=== PATIENT | female | born 1990 | race Two or more races ===

== ENCOUNTER → 2017-08-09 | Outpatient (CLI) | payer OTHER ==
[~2017-08-09] MED LIST: IBUP800 PO; OXYACE5T PO
[2017-08-09 20:06] LABS: Free Thyroxine 0.77 ng/dL (0.70-1.60); Thyroid Stimulating Hormone 6.42 uIU/mL (0.360-4.800)
== END | disposition home or self-care (01) ==
LOC: LAB 17:23
PROVIDERS: Nurse Practitioner Primary Care
DX: E05.80 Other thyrotoxicosis without thyrotoxic crisis or storm (principal)
CPT/HCPCS: 84439; 84443

== ENCOUNTER → 2019-03-22 | Outpatient (CLI) | payer SELFPAY | LOC: LAB SHORT 10:30 → LAB 10:30 | PROVIDERS: Registered Nurse Community Health | DX: Z12.4 Encounter for screening for malignant neoplasm of cervix (principal) | CPT/HCPCS: G0123 ==

== ENCOUNTER 2024-05-29 23:13 | Observation (INO) | payer BC ==
[~2024-05-29] VITALS: Ht 160 cm; Wt 106.5 kg
[2024-05-29] MEDS ORDERED: Ondansetron HCl 2 MG / ML 2ML Vial IV PRN (23:30)
[2024-05-29] MEDS ORDERED: LEVOTHYROXINE112 M18 PO (23:31)
[2024-05-29] MEDS ORDERED: OMEP20ER PO (23:32)
[2024-05-29 23:50] LABS: BASOPHILS ABSOLUTE AUTO 0.05 K/mm3 (0.00-0.23); BASOPHILS PERCENT AUTO 1 % (0-2); EOSINOPHILS ABSOLUTE AUTO 0.06 K/mm3 (0.00-0.68); EOSINOPHILS PERCENT AUTO 1 % (0-6); Hematocrit 37.6 % (33.0-51.0); Hemoglobin 12.7 g/dL (11.5-16.0); IMMATURE GRAN ABSOLUTE AUTO 0.01 K/mm3 (0.00-0.10); IMMATURE GRAN PERCENT AUTO 0 % (0-1); LYMPHOCYTES PERCENT AUTO 34 % (21-46); MONOCYTES ABSOLUTE AUTO 0.22 K/mm3 (0.16-1.47); MONOCYTES PERCENT AUTO 4 % (4-13); Mean Corpuscular HGB 28.9 pg (26.0-34.0); Mean Corpuscular HGB Conc 33.8 g/dL (31.5-36.5); Mean Corpuscular Volume 86 fL (80-100); Mean Platelet Volume 9.2 fL (9.1-12.4); NEUTROPHILS ABSOLUTE AUTO 3.43 K/mm3 (1.96-9.15); NEUTROPHILS PERCENT AUTO 60 % (41-73); Platelet Count 248 K/mm3 (150-400); RDW Coefficient Variation 12.5 % (11.7-14.2); RDW Standard Deviation 39.3 fL (35.1-46.3); Red Blood Cell Count 4.39 M/mm3 (3.80-5.20); White Blood Cell Count 5.67 K/mm3 (4.00-11.30)
[2024-05-30 00:07] LABS: Albumin, Blood 3.7 g/dL (3.4-5.0); Bilirubin, Total 1.3 mg/dL (0.1-1.0); Bun/Creatinine Ratio 29.3 (12.0-20.0); Calcium, Blood 8.8 mg/dL (8.5-10.1); Creatinine, Blood 0.65 mg/dL (0.40-1.00); Globulin, Blood 3.8 g/dL (2.2-4.0); Potassium, Blood 3.4 mmol/L (3.5-5.5); Total Protein, Blood 7.5 g/dL (6.4-8.2)
[2024-05-30 00:44] LABS: Source, Urine Clean Catch
[2024-05-30 01:05] LABS: Bilirubin, Urine Neg (Neg); Blood, Urine Neg (Neg); Glucose Qualitative, Urine Neg (Neg); Ketones, Urine Neg (Neg); Leukocyte Esterase, Urine Neg (Neg); Nitrite, Urine Neg (Neg); Protein, Urine Neg (Neg); Specific Gravity, Urine 1.015 (1.003-1.022); Urobilinogen, Urine 1+ (Normal)
[2024-05-30 01:11] LABS: Appearance, Urine Clear (Clear); Color, Urine Yellow (P-Yellow)
[2024-05-30] MEDS ORDERED: Ketorolac Tromethamine 30mg Vial IV ONE (01:55)
[2024-05-30] MEDS ORDERED: Potassium Chl 20MEQ/Water100ML 100 ML IV ONE (03:10)
[2024-05-30] MEDS ORDERED: FentaNYL Citrate 50 MCG/ML 2 ML Injection IV PRN (03:10)
[2024-05-30] MEDS ORDERED: CefTRIAXone Sodium 2,000 MG in NS 100 ML IV SCH (03:10)
[2024-05-30] MEDS ORDERED: Ondansetron HCl 2 MG / ML 2ML Vial IV PRN (03:10)
[2024-05-30] MEDS ORDERED: Lactated Ringer's 1,000 ML IV SCH (03:15)
[2024-05-30] MEDS ORDERED: Potassium Chl 10MEQ/Water100ML 100 ML IV SCH (03:25)
--- NOTE | 2024-05-30 04:09 | NUR ---
REPORT TAKEN FROM PHILIPP LONG FROM ED @ [phone].
[2024-05-30 04:40] VITALS: BP 121/76
--- NOTE | 2024-05-30 06:16 | NUR ---
SHIFT SUMMARY NOC PT A/O X 4. PLEASANT AND COOPERATIVE WITH CARE. VSS. ADMIT FOR CHOLYCYSTITIS. NPO FOR PROCEDURE TODAY. PT HAS LR INFUSING @ 200 ML/HR INSTEAD OF 500 ML/HR DUE TO PT NOT TOLERATING IV KCL WITH C/O OF BURNING. KCL IS INFUSING @ 25 ML HR ON LAST BAG SO PT CAN TOLERATE INFUSION. PT HAS NOT HAD C/O OF SIGNIFICANT PAIN SINCE ADMIT TO FLOOR. PT CURRENTLY RESTING WITH BED IN LOWEST POSITION, AND CALL LIGHT WITHIN REACH.
[2024-05-30 08:27] VITALS: BP 102/72
[2024-05-30 09:31] LABS: Albumin, Blood 3.4 g/dL (3.4-5.0); Bilirubin, Total 1.2 mg/dL (0.1-1.0); Bun/Creatinine Ratio 19.8 (12.0-20.0); Calcium, Blood 8.8 mg/dL (8.5-10.1); Creatinine, Blood 0.61 mg/dL (0.40-1.00); Globulin, Blood 3.5 g/dL (2.2-4.0); Potassium, Blood 3.8 mmol/L (3.5-5.5); Total Protein, Blood 6.9 g/dL (6.4-8.2)
[2024-05-30] MEDS ORDERED: FLU VACC TS2024-25(6MOS UP)/PF 45 MCG/0.5 ML SYRINGE IM PRN (10:55)
[2024-05-30] MEDS ORDERED: D5W-1/2NS KCl 20mEq 1,000 ML IV SCH (10:55)
[2024-05-30] MEDS ORDERED: NS 250 ML IV PRN (11:35)
[2024-05-30] MEDS ORDERED: Ampicillin Sod/Sulbactam Sod 3 GM in NS 100 ML IV SCH (12:00)
--- NOTE | 2024-05-30 12:33 | NUR ---
PT TO MRI.
[2024-05-30 14:56] VITALS: BP 103/61
--- NOTE | 2024-05-30 19:00 | NUR ---
SHIFT SUMMARY PT A/OX4. PT WAS INITIALLY NPO SINCE MID NIGHT BUT CHANGED TO CLEAR LIQUIDS AFTER SURGERY WAS CHANGED TO TOMORROW. PT FRED CLEAR LIQUIDS WELL. PT HAS NOT HAD ANY PAIN DURING THIS SHIFT. PT RECEIVING SCHEDULED IV ANTIBIOTICS. PT IN GOOD SPIRITS. CARE PLAN ONGOING.
[2024-05-30 19:33] VITALS: BP 109/75
[2024-05-30] MEDS ORDERED: Omeprazole 20 MG CapCR PO ONE (20:50)
[2024-05-30] MEDS ORDERED: Docusate Sodium 100 MG Cap PO SCH (21:00)
[2024-05-31] VITALS (16 sets, daily range): BP systolic 97–147; BP diastolic 50–89
--- NOTE | 2024-05-31 04:11 | NUR ---
SHIFT SUMMARY NPO FOR SURGERY, IND IN ROOM. IV ABX AND FLUIDS T/O SHIFT. DENIES PAIN, N/V. VOIDING. VSS. CALL LIGHT IN REACH.
[2024-05-31 05:23] LABS: Albumin, Blood 3.1 g/dL (3.4-5.0); Albumin/Globulin Ratio 0.9 (0.8-1.8); Bun/Creatinine Ratio 12.4 (12.0-20.0); Calcium, Blood 8.7 mg/dL (8.5-10.1); Creatinine, Blood 0.65 mg/dL (0.40-1.00); Globulin, Blood 3.3 g/dL (2.2-4.0); Potassium, Blood 3.8 mmol/L (3.5-5.5); Total Protein, Blood 6.4 g/dL (6.4-8.2)
--- NOTE | 2024-05-31 08:39 | NUR ---
MORNING NOTE THIS RN ASSUMED CARE AT APPROX 0715. PATIENT ALERT AND ORIENTED X4. INDEPENDENT IN ROOM. COMMUNICATES NEEDS EFFECTIVELY. VSS. NPO SINCE MIDNIGHT FOR LAP DANA. DENIES PAIN AT THIS TIME. HYPOACTIVE BOWEL TONES. ABD TENDER. DENIES N/V. IVF INFUSING PER EMAR. REPORTS FLATULENCE. CALL LIGHT IN REACH.
[2024-05-31] MEDS ORDERED: Indocyanine Green 25 MG Vial IV ONE (10:00)
--- NOTE | 2024-05-31 11:01 | NUR ---
"Spiritual Care Visit | Pt. Request Pt. is awake in her bed and welcomes my visit. Pt. is pleasant. Facilitated a life review and an updated plan of care. Pt. displays no evidence of discomfort but is a little unsettled by the wait for her surgery. Listen with empathy and seek to normalize the Pt. Experience. Pt. verbalizes that she is a woman of [place]. Considered matters of jermaine and belief. Pt. displays evidence of being stong and hopeful. Prayed with Pt. Pt. verbalize gratitude for the spiritual care visit and welcomed this grants and contracts assistant to return."
[2024-05-31] MEDS ORDERED: FentaNYL Citrate 50 MCG/ML 5 ML Injection ONE (14:40)
[2024-05-31] MEDS ORDERED: propofoL 20 ML IV ONE (14:40)
[2024-05-31] MEDS ORDERED: Lidocaine HCl 2% 20 ML MDV ONE (14:40)
[2024-05-31] MEDS ORDERED: Ondansetron HCl 2 MG / ML 2ML Vial ONE (14:40)
[2024-05-31] MEDS ORDERED: Ketorolac Tromethamine 30mg Vial ONE (14:40)
[2024-05-31] MEDS ORDERED: Dexamethasone Sod Phos 10 MG/ML 1ML VIAL ONE (14:40)
[2024-05-31] MEDS ORDERED: Rocuronium Bromide 10 MG/ML 5ML Injection IV ONE ×2 (14:40)
[2024-05-31] MEDS ORDERED: Lactated Ringer's 1,000 ML IV SCH (14:45)
[2024-05-31] MEDS ORDERED: Bupivacaine 0.5% HCl 5 MG/ML 30MLVIAL ONE (14:52)
--- NOTE | 2024-05-31 14:53 | NUR ---
PATIENT TRANSFERRED OFF UNIT AT APPROX 1440 FOR PROCEDURE VIA GURNEY
[2024-05-31] MEDS ORDERED: Glycopyrrolate 0.2 MG/ML 5ML VIAL ONE (15:28)
[2024-05-31] MEDS ORDERED: Sugammadex Sodium 200 MG/2ML SDV (100 MG/ML) ONE (15:38)
[2024-05-31] MEDS ORDERED: HYDROmorphone HCl/Pf 1MG SYR ONE (16:49)
--- NOTE | 2024-05-31 17:17 | NUR ---
SHIFT SUMMARY/RETURN TO UNIT PATIENT TRANSFERRED BACK TO UNIT FOLLOWING PROCEDURE AT APPROX 1715. PATIENT LETHARGIC, EASILY AROUSABLE WITH VERBAL STIMULI. ALERT AND ORIENTED X4. COMMUNICATING NEEDS EFFECTIVELY. VSS. S/P LAP DANA WITH X4 LAP SITES - C/D/I. PAIN TOLERABLE AT THIS TIME. DENIES NAUSEA - SMALL SNACK AND WATER WITHIN REACH. LR INFUSING TO GRAVITY. CALL LIGHT IN REACH. WILL CONTINUE TO MONITOR AND REPORT TO ONCOMING RN.
[2024-05-31] MEDS ORDERED: OxyCODONE HCL 5 MG TAB PO PRN (18:20)
[2024-05-31] MEDS ORDERED: Simethicone 80 MG Chew PO PRN (20:30)
[2024-05-31] MEDS ORDERED: Omeprazole 20 MG CapCR PO ONE (20:40)
--- NOTE | 2024-06-01 04:31 | NUR ---
NOC SUMMARY- PT DISCOMFORT HAS BEEN MINIMAL. PT HAS BEEN TAKING SOME PO FLUIDS. PT HAS VOIDED. PT HAS BEEN RESTING QUIETLY THROUGHOUT SHIFT. PT LAP SITES C/D/I. CALL LIGHT IN REACH.
[2024-06-01 04:43] VITALS: BP 109/72
[2024-06-01] MEDS ORDERED: Omeprazole 20 MG CapCR PO SCH (06:00)
[2024-06-01 07:25] VITALS: BP 115/64
[2024-06-01] MEDS ORDERED: OXAYDO5 M1 PO (09:08)
--- NOTE | 2024-06-01 09:30 | NUR ---
DISCHARGE NOTE PT A/OX4. FRED PO INTAKE WELL. PT VOIDING AND ABLE TO WALK W/O ISSUE. PT HAS NOT NEEDED ANY PAIN MEDICINE TODAY. PT WILL CALL AND SCHEDULE POST-OP APT WITHIN 2 WEEKS. PT VERBALIZES UNDERSTANDING OF D/C INST AND QUESTIONS ANSWERED. LAP SITES X4 C/D/I. PT ESCORTED TO LOBBY VIA WC.
== END 2024-06-01 09:35 | disposition home or self-care (01) ==
LOC: ER 23:13 → SURS 23:14 → ERHOLD 23:14 → SURS 05-30 04:10
PROVIDERS: Physician Assistant; Surgery; ADMIT Surgery
PROC: 3E0T3BZ Introduction of Anesthetic Agent into Peripheral Nerves and Plexi, Percutaneous Approach (ICD-10-PCS; principal; 2024-05-31 16:00)
PROC: BF03YZZ Plain Radiography of Gallbladder and Bile Ducts using Other Contrast (ICD-10-PCS; principal; 2024-05-31 16:00)
PROC: 0FT44ZZ Resection of Gallbladder, Percutaneous Endoscopic Approach (ICD-10-PCS; principal; 2024-05-31 16:00)
DX: K80.00 Calculus of gallbladder with acute cholecystitis without obstruction (principal); K76.0 Fatty (change of) liver, not elsewhere classified; E06.3 Autoimmune thyroiditis; K21.9 Gastro-esophageal reflux disease without esophagitis; E66.89 Other obesity not elsewhere classified; Z68.41 Body mass index [BMI] 40.0-44.9, adult; Z98.84 Bariatric surgery status; Z79.890 Hormone replacement therapy; Z79.899 Other long term (current) drug therapy; Z88.6 Allergy status to analgesic agent
CPT/HCPCS: 36415; 74181; 76705; 80053; 81003; 81025; 83690; 85025; 86850; 86900; 86901; 88304; 96365; 96366; 96367; 96368; 96375; 96376; 99285-25; A9270; G0378; J0295; J0696; J1100; J1171; J1885; J2405; J2704; J3010; J3480; J7050; J7120